=== PATIENT | male | born 1980 | race Caucasian/White ===

== ENCOUNTER 2019-02-01 14:12 | Emergency (ER) | payer BC ==
--- NOTE | 2019-02-01 14:59 | EDM.PDOC ---
ED HPI GENERAL MEDICAL PROBLEM - General Chief Complaint: Lower Extremity Injury/Pain Stated Complaint: RT KNEE SWELLING Time Seen by Provider: 02/01/19 14:34 Source of Information: Reports: Patient History Limitations: Reports: No Limitations - History of Present Illness INITIAL COMMENTS - FREE TEXT/NARRATIVE: The patient presents with right knee pain. He was going to open the padilla of his truck and he slipped and his leg went under the truck. He caught himself but he felt his right knee pop about 3 times. He has had trouble with that knee before. It hurts to put the knee strait. Onset: Sudden Duration: Minutes: Location: Reports: Lower Extremity, Right (Knee) Quality: Reports: Sharp Improves with: Reports: Immobilization Worsens with: Reports: Movement Right Knee Pain Score (Numeric/FACES): 9 - Related Data Allergies Allergy/AdvReac Type Severity Reaction Status Date / Time No Known Allergies Allergy Verified 02/01/19 14:24 Home Meds: Home Meds . [No Known Home Meds] 02/01/19 [History] Past Medical History - Past Health History Medical/Surgical History: Denies Medical/Surgical History Social & Family History - Tobacco Use Smoking Status *Q: Never Smoker - Recreational Drug Use Recreational Drug Use: No Review of Systems - Review of Systems Review Of Systems: See Below Constitutional: Reports: No Symptoms Eyes: Reports: No Symptoms Ears: Reports: No Symptoms Nose: Reports: No Symptoms Mouth/Throat: Reports: No Symptoms Respiratory: Reports: No Symptoms Cardiovascular: Reports: No Symptoms GI/Abdominal: Reports: No Symptoms Genitourinary: Reports: No Symptoms Musculoskeletal: Reports: Other (Right knee pain) ED EXAM, GENERAL - Physical Exam Exam: See Below Exam Limited By: No Limitations General Appearance: Alert, No Apparent Distress Ears: Normal External Exam Nose: Normal Inspection Head: Atraumatic, Normocephalic Neck: Normal Inspection Respiratory/Chest: No Respiratory Distress Extremities: Other (Mild edema to the right leg with pain upon palpation to the medial knee) Course - Vital Signs Last Recorded V/S: Last Vital Signs Temp 99.2 F 02/01/19 14:24 Pulse 77 02/01/19 14:24 Resp 16 02/01/19 14:24 BP 139/89 02/01/19 14:24 Pulse Ox 96 02/01/19 14:24 - Orders/Labs/Meds Orders: Active Orders 24 hr Category Date Time Status Knee Min 4V Rt [CR] Stat Exams 02/01/19 14:47 Taken Durable Medical Equipment for Discharge [DME for Oth 02/01/19 15:21 Ordered Discharge] [COMM] Stat - Re-Assessments/Exams Free Text/Narrative Re-Assessment/Exam: 02/01/19 15:22 His x-ray looks good. I am worried he sprained his knee. I will get him an Kadeem wrap and crutches. I will have him follow up with Dr Capellan. Departure - Departure Time of Disposition: 15:25 Disposition: Home, Self-Care 01 Condition: Good Clinical Impression: Right knee sprain Qualifiers: Encounter type: initial encounter Involved ligament of knee: medial collateral ligament Qualified Code(s): S83.411A - Sprain of medial collateral ligament of right knee, initial encounter - Discharge Information *PRESCRIPTION DRUG MONITORING PROGRAM REVIEWED*: Not Applicable *COPY OF PRESCRIPTION DRUG MONITORING REPORT IN PATIENT FERMIN: Not Applicable Referrals: PCP,None [Primary Care Provider] - Rashawn Capellan MD [Physician] - 1 Week Forms: ED Department Discharge Additional Instructions: Ice your knee for 15 minutes 3 times per day for 2 days. Try to elevate your leg as much as you can for 2 days. Wear the Kadeem wrap for a few days and use the crutches as needed. Please return if you are worse. Follow up with Dr Capellan in 1 to 2 weeks. - My Orders Last 24 Hours: My Active Orders 02/01/19 14:47 Knee Min 4V Rt [CR] Stat 02/01/19 15:21 Durable Medical Equipment for Discharge [DME for Discharge] [COMM] Stat - Assessment/Plan Last 24 Hours: My Active Orders 02/01/19 14:47 Knee Min 4V Rt [CR] Stat 02/01/19 15:21 Durable Medical Equipment for Discharge [DME for Discharge] [COMM] Stat
--- NOTE | 2019-02-01 16:26 | CR ---
Right knee: Four views of the right knee were obtained. Ununited anterior tibial apophysis is seen which appears old. Medial and lateral joint compartments are maintained in height. No joint effusion is seen. No acute fracture or other bony abnormality is seen. Incidental soft tissue calcification is seen within the anterior and superior roberts. Impression: 1. Incidental findings. Nothing acute is appreciated on right knee exam. Diagnostic code #2
== END 2019-02-01 15:36 | disposition home or self-care (01) ==
LOC: JD.ED 14:12
DX: S83.411A Sprain of medial collateral ligament of right knee, initial encounter (principal); W01.0XXA Fall on same level from slipping, tripping and stumbling without subsequent striking against object, initial encounter
CPT/HCPCS: 73564-26-RT; 73564-RT; 99283-25